=== PATIENT | female | born 1950 | race Two or more races ===

== ENCOUNTER 2018-05-08 10:24 | Day surgery (SDC) | payer OTHER | END 2018-05-08 14:50 | disposition home or self-care (01) | LOC: AMB-ENDOS 10:24 | DX: D12.8 Benign neoplasm of rectum (principal); K64.1 Second degree hemorrhoids ==

== ENCOUNTER 2018-08-14 10:15 | Inpatient (IN) | payer OTHER ==
[~2018-08-14] VITALS: Ht 152.4 cm; Wt 65.8 kg
[2018-08-14] MEDS ORDERED: ZANTAC300 MG PO (12:15)
[2018-08-14] MEDS ORDERED: CLARITIN10 M2 PO (12:15)
[2018-08-14] MEDS ORDERED: PROTONIX40 MG PO (12:15)
[2018-08-14] MEDS ORDERED: VALTREX1000 MG PO (12:15)
== END 2018-09-03 19:06 | disposition home or self-care (01) | DRG 395 ==
LOC: SURH 08-19 10:15 → O/R 09-02 08:16 → SURH 09-02 08:16
PROVIDERS: ADMIT Colon & Rectal Surgery
PROC: 0DBP8ZZ Excision of Rectum, Via Natural or Artificial Opening Endoscopic (ICD-10-PCS; principal; 2018-09-02 16:45)
DX: D12.8 Benign neoplasm of rectum (principal); K62.0 Anal polyp; K57.30 Diverticulosis of large intestine without perforation or abscess without bleeding; Z86.010 Personal history of colon polyps

== ENCOUNTER 2018-12-25 09:13 | Day surgery (SDC) | payer OTHER ==
[~2018-12-25 09:13] MED LIST: CLARITIN10 M2 PO; PROTONIX40 MG PO; VALTREX1000 MG PO; ZANTAC300 MG PO
== END 2018-12-25 15:55 | disposition home or self-care (01) ==
LOC: AMB-ENDOS 09:13
DX: C20 Malignant neoplasm of rectum (principal); D13.1 Benign neoplasm of stomach; K64.2 Third degree hemorrhoids

== ENCOUNTER 2019-01-14 11:16 | Inpatient (IN) | payer OTHER | END 2019-02-02 14:56 | disposition home or self-care (01) | DRG 330 | LOC: SURG 01-20 09:15 → O/R 01-27 05:04 → SURH 01-27 05:04 → SURG 01-27 09:15 → SURH 01-27 13:29 → SURG 01-27 16:00 → SURH 02-02 14:56 | PROVIDERS: ADMIT Colon & Rectal Surgery | PROC: 0DTP4ZZ Resection of Rectum, Percutaneous Endoscopic Approach (ICD-10-PCS; 2019-01-27) | PROC: 07BB4ZZ Excision of Mesenteric Lymphatic, Percutaneous Endoscopic Approach (ICD-10-PCS; 2019-01-27) | PROC: 07BC4ZZ Excision of Pelvis Lymphatic, Percutaneous Endoscopic Approach (ICD-10-PCS; 2019-01-27) | PROC: 0DJD8ZZ Inspection of Lower Intestinal Tract, Via Natural or Artificial Opening Endoscopic (ICD-10-PCS; 2019-01-27) | PROC: 3E0F7GC Introduction of Other Therapeutic Substance into Respiratory Tract, Via Natural or Artificial Opening (ICD-10-PCS; 2019-01-27) | PROC: 0D1B4Z4 Bypass Ileum to Cutaneous, Percutaneous Endoscopic Approach (ICD-10-PCS; principal; 2019-01-27 16:00) | PROC: 4A033R1 Measurement of Arterial Saturation, Peripheral, Percutaneous Approach (ICD-10-PCS; 2019-01-29) | PROC: 30233N1 Transfusion of Nonautologous Red Blood Cells into Peripheral Vein, Percutaneous Approach (ICD-10-PCS; 2019-01-31) | DX: C20 Malignant neoplasm of rectum (principal); K92.1 Melena; J45.21 Mild intermittent asthma with (acute) exacerbation; J98.11 Atelectasis; F33.0 Major depressive disorder, recurrent, mild; D62 Acute posthemorrhagic anemia; K57.30 Diverticulosis of large intestine without perforation or abscess without bleeding; R59.0 Localized enlarged lymph nodes; K63.89 Other specified diseases of intestine; R33.8 Other retention of urine; N76.0 Acute vaginitis; B96.29 Other Escherichia coli [E. coli] as the cause of diseases classified elsewhere ==

== ENCOUNTER 2019-05-03 14:50 | Inpatient (IN) | payer OTHER ==
[~2019-05-03] VITALS: Ht 152.4 cm; Wt 57.2 kg
[~2019-05-03 14:50] MED LIST changes: +PROTONIX40 MG; +ZANTAC300 MG
== END 2019-06-06 13:50 | disposition home or self-care (01) | DRG 330 ==
LOC: O/R 05-26 06:57 → SURH 05-26 06:57 → SURG 05-26 08:45 → SURH 05-26 13:23
PROVIDERS: ADMIT Colon & Rectal Surgery
PROC: 0DQB4ZZ Repair Ileum, Percutaneous Endoscopic Approach (ICD-10-PCS; principal; 2019-05-26 08:45)
PROC: 3E0F7GC Introduction of Other Therapeutic Substance into Respiratory Tract, Via Natural or Artificial Opening (ICD-10-PCS; 2019-05-27)
PROC: 0DJD8ZZ Inspection of Lower Intestinal Tract, Via Natural or Artificial Opening Endoscopic (ICD-10-PCS; 2019-06-01)
PROC: 0D1L4Z4 Bypass Transverse Colon to Cutaneous, Percutaneous Endoscopic Approach (ICD-10-PCS; 2019-06-04)
PROC: 0T9B70Z Drainage of Bladder with Drainage Device, Via Natural or Artificial Opening (ICD-10-PCS; 2019-06-04)
DX: Z43.2 Encounter for attention to ileostomy (principal); K91.31 Postprocedural partial intestinal obstruction; F33.8 Other recurrent depressive disorders; C20 Malignant neoplasm of rectum; N82.3 Fistula of vagina to large intestine; D62 Acute posthemorrhagic anemia; N13.8 Other obstructive and reflux uropathy; R31.0 Gross hematuria; A60.09 Herpesviral infection of other urogenital tract; J45.20 Mild intermittent asthma, uncomplicated; K57.30 Diverticulosis of large intestine without perforation or abscess without bleeding; K63.89 Other specified diseases of intestine

== ENCOUNTER → 2019-05-06 | Outpatient (CLI) | payer OTHER | END | disposition home or self-care (01) | LOC: RX STUDY 10:15 | DX: C20 Malignant neoplasm of rectum (principal) ==

== ENCOUNTER 2019-06-10 21:15 | Emergency (ER) | payer OTHER ==
[~2019-06-10] VITALS: Ht 152.4 cm; Wt 55.8 kg
== END 2019-06-10 22:03 | disposition home or self-care (01) ==
LOC: ER 21:15
DX: I80.8 Phlebitis and thrombophlebitis of other sites (principal); L03.113 Cellulitis of right upper limb

== ENCOUNTER 2019-07-14 06:00 | Day surgery (SDC) | payer OTHER | END 2019-07-14 12:00 | disposition home or self-care (01) | LOC: CIR.AMB 06:00 → ADM 11:15 → CIR.AMB 12:00 | DX: N82.3 Fistula of vagina to large intestine (principal); K62.0 Anal polyp | CPT/HCPCS: 46288; 0184T ==

== ENCOUNTER 2019-12-08 08:45 | Inpatient (IN) | payer OTHER ==
[2019-12-08] MEDS ORDERED: CLARITIN10 M1 PO (10:44)
== END 2019-12-16 08:00 | disposition home or self-care (01) | DRG 348 ==
LOC: ADM 08:45 → O/R 12-15 07:00 → CIR.AMB 12-15 08:09 → EDSTATUS 12-15 08:45 → CIR.AMB 12-15 10:00 → SURG 12-15 17:51 → CIR.AMB 12-15 17:51 → O/R 12-15 17:51 → SURG 12-15 21:02 → O/R 12-15 21:02 → SURG 12-15 21:02 → CIR.AMB 12-16 08:00 → O/R 12-16 08:00 → SURG 12-16 19:42 → O/R 12-16 19:42
PROVIDERS: ADMIT Colon & Rectal Surgery; ATTEND Colon & Rectal Surgery
PROC: 0DBP7ZZ Excision of Rectum, Via Natural or Artificial Opening (ICD-10-PCS; principal; 2019-12-15 10:00)
DX: N82.3 Fistula of vagina to large intestine (principal); K92.1 Melena; K57.20 Diverticulitis of large intestine with perforation and abscess without bleeding; D12.8 Benign neoplasm of rectum

== ENCOUNTER 2019-12-19 10:12 | Emergency (ER) | payer OTHER ==
[~2019-12-19] VITALS: Ht 152.4 cm; Wt 59.0 kg
[~2019-12-19 10:12] MED LIST changes: +CLARITIN10 M1 PO
== END 2019-12-19 13:01 | disposition home or self-care (01) ==
LOC: ER 10:12
DX: R33.8 Other retention of urine (principal); Z20.828 Contact with and (suspected) exposure to other viral communicable diseases

== ENCOUNTER → 2019-12-20 | Emergency (ER) | payer OTHER | END | disposition left against medical advice (07) | LOC: ER 18:04 | DX: Z53.21 Procedure and treatment not carried out due to patient leaving prior to being seen by health care provider (principal) ==

== ENCOUNTER 2020-04-05 05:40 | Day surgery (SDC) | payer OTHER | END 2020-04-05 14:50 | disposition home or self-care (01) | LOC: CIR.AMB 05:40 | PROVIDERS: ATTEND Colon & Rectal Surgery | DX: K62.4 Stenosis of anus and rectum (principal); D12.8 Benign neoplasm of rectum; Z20.828 Contact with and (suspected) exposure to other viral communicable diseases ==

== ENCOUNTER → 2020-04-21 | Emergency (ER) | payer OTHER ==
[~2020-04-21] VITALS: Ht 152.4 cm; Wt 61.7 kg
== END | disposition left against medical advice (07) ==
LOC: ER 14:23
DX: K94.03 Colostomy malfunction (principal)

== ENCOUNTER 2020-05-26 06:00 | Day surgery (SDC) | payer OTHER | END 2020-05-26 09:30 | disposition home or self-care (01) | LOC: AMB-ENDOS 06:00 | PROVIDERS: ATTEND Colon & Rectal Surgery | DX: K62.89 Other specified diseases of anus and rectum (principal); Z20.822 Contact with and (suspected) exposure to COVID-19 ==

== ENCOUNTER 2020-09-13 11:30 | Inpatient (IN) | payer OTHER ==
[~2020-09-13] VITALS: Ht 152.4 cm; Wt 64.4 kg
[2020-09-13] MEDS ORDERED: PROTONIX40 MG PO (13:35)
== END 2020-09-27 15:11 | disposition home or self-care (01) | DRG 827 ==
LOC: O/R 09-20 06:32 → SURG 09-20 06:32 → SURH 09-20 11:00 → SURG 09-20 13:29
PROVIDERS: ADMIT Colon & Rectal Surgery; ATTEND Colon & Rectal Surgery
PROC: 0D1M4Z4 Bypass Descending Colon to Cutaneous, Percutaneous Endoscopic Approach (ICD-10-PCS; 2020-09-20)
PROC: 0WBF4ZZ Excision of Abdominal Wall, Percutaneous Endoscopic Approach (ICD-10-PCS; 2020-09-20)
PROC: 02HV33Z Insertion of Infusion Device into Superior Vena Cava, Percutaneous Approach (ICD-10-PCS; 2020-09-20)
PROC: 0DBN4ZZ Excision of Sigmoid Colon, Percutaneous Endoscopic Approach (ICD-10-PCS; principal; 2020-09-20 11:00)
DX: C79.89 Secondary malignant neoplasm of other specified sites (principal); F33.0 Major depressive disorder, recurrent, mild; Z43.3 Encounter for attention to colostomy; I12.9 Hypertensive chronic kidney disease with stage 1 through stage 4 chronic kidney disease, or unspecified chronic kidney disease; N18.31 Chronic kidney disease, stage 3a